=== PATIENT | female | born 1980 | race African-American/Black ===

== ENCOUNTER → 2019-12-25 | Outpatient (CLI) | payer OTHER | LOC: M.MRI 11:07 | DX: N63.13 Unspecified lump in the right breast, lower outer quadrant (principal) ==

== ENCOUNTER → 2020-01-02 | Day surgery (SDC) | payer OTHER ==
[~2020-01-02] MED LIST: ALDACTONE100 MG PO; BUPROPION XL300 MG PO; LIPITOR 20 MG T20 M1 PO; LOSARTAN POTASS50 MG PO; OZEMPIC0.25 MG/0. SUBQ; TOPAMAX100 MG PO; TRAMADOL 50 MG50 MG PO; VITAMIN D22000 UNIT PO
[2020-01-02 10:59] LABS: HEMATOCRIT 39.6 % (37.0-47.0); MCH 27.1 pg (26.0-34.0); MCHC 32.8 g/dL (28.0-37.0); MCV 82.6 fL (80.0-100.0); MPV 7.9 fl. (7.2-11.1); RBC 4.8 mil/uL (4.20-5.00); RDW-CV 16.8 % (10.5-14.5); WBC 11.1 thou/uL (4.0-11.0)
[2020-01-02 11:08] LABS: CALCIUM 8.5 mg/dL (8.5-10.1); POTASSIUM 3.9 mmol/L (3.5-5.1)
--- NOTE | 2020-01-02 15:54 | 2DMMODE ---
[place] [address] 2 D/M-MODE ECHOCARDIOGRAM Name: CAN ZELAYA Room: [facility]#: [id number] Admission: 01/02/20 Attend Phys: Brenda Dhaliwal, Discharge: Date of : 76 Date of Service: 01/02/20 1552 Report #: [id number] THIS REPORT FOR: cc: Rodolfo Pritchett MD, Tuongvan T. MD Liston, Michael J. MD [facility] ~ APPROVED REPORT Study performed: 01/02/2020 09:29:51 EXAM: Comprehensive 2D, Doppler, and color-flow Echocardiogram Patient Location: Out-Patient BSA: 2.64 HR: 72 bpm Other Information Study Quality: Good Indications Chemo 2D Dimensions IVSd: 12.23 (7-11mm) LVOT Diam: 20.41 (18-24mm) LVDd: 48.59 mm PWd: 11.60 (7-11mm) Ascending Ao: 32.99 (22-36mm) LVDs: 28.59 (25-40mm) Aortic Root: 32.15 mm Volumes Left Atrial Volume (Systole) LA ESV Index: 15.10 mL/m2 Aortic Valve AoV Peak Santos.: 1.52 m/s AO Peak Gr.: 9.19 mmHg LVOT Max P.20 mmHg AO Mean Gr.: 4.82 mmHg LVOT Mean P.31 mmHg LVOT Max V: 1.14 m/s AO V2 VTI: 29.07 cm LVOT Mean V: 0.68 m/s ESPERANZA (VTI): 2.65 cm2 LVOT V1 VTI: 23.57 cm Mitral Valve E/A Ratio: 1.21 [place] [address] 2 D/M-MODE ECHOCARDIOGRAM Name: CAN ZELAYA Room: [facility]#: [id number] Admission: 01/02/20 Attend Phys: Brenda Dhaliwal, Discharge: Date of : 76 Date of Service: 01/02/20 1552 Report #: [id number] MV Decel. Time: 203.05 ms MV E Max Santos.: 0.97 m/s MV PHT: 58.88 ms MVA (PHT): 3.74 cm2 TDI E/Lateral E': 7.46 E/Medial E': 6.93 Medial E' Santos.: 0.14 m/s Lateral E' Santos.: 0.13 m/s Pulmonary Valve PV Peak Santos.: 0.86 m/s PV Peak Gr.: 2.99 mmHg Left Ventricle The left ventricle is normal size. There is normal LV segmental wall motion. There is normal left ventricular wall thickness. Left ventricular systolic function is normal. LVEF is 60-65%. The left ventricular diastolic function is normal. Right Ventricle The right ventricle is normal size. The right ventricular systolic function is normal. Atria The left atrium size is normal. The right atrium size is normal. Aortic Valve The aortic valve is normal in structure. No aortic regurgitation is present. There is no aortic valvular stenosis. Mitral Valve The mitral valve is normal in structure. There is no mitral valve regurgitation noted. No evidence of mitral valve stenosis. Tricuspid Valve The tricuspid valve is normal in structure. There is no tricuspid valve regurgitation noted. Pulmonic Valve The pulmonary valve is normal in structure. There is no pulmonic valvular regurgitation. Great Vessels The aortic root is normal in size. IVC is normal in size and collapses >50% [place] [address] 2 D/M-MODE ECHOCARDIOGRAM Name: CAN ZELAYA Room: [facility]#: [id number] Admission: 01/02/20 Attend Phys: Brenda Dhaliwal, Discharge: Date of : 76 Date of Service: 01/02/20 1552 Report #: [id number] Pericardium There is no pericardial effusion. <Conclusion> The left ventricle is normal size. There is normal left ventricular wall thickness. Left ventricular systolic function is normal. The left ventricular diastolic function is normal. IVC is normal in size and collapses >50% with inspiration. LVEF is 60-65%. <ELECTRONICALLY SIGNED> By: Tate Bonilla MD, FACC 01/02/20 [phone] 51 Tate Bonilla MD, FACC /INF
--- NOTE | 2020-01-10 17:06 | OP ---
[address] [address] OPERATIVE REPORT Name: CAN ZELAYA Room: [facility]#: [id number] Admission: 01/02/20 Attend Phys: Brenda Dhaliwal DO Discharge: Date of : 76 Report #: [id number] THIS REPORT FOR: //name// cc: Rodolfo Pritchett MD, Tuongvan T. MD ~ THIS REPORT FOR: //name// CC: Brenda Pritchett MD DICTATED BY: Morenita Rico DO DATE OF SERVICE: 01/02/2020 PREOPERATIVE DIAGNOSIS: Right breast cancer in need of neoadjuvant therapy. POSTOPERATIVE DIAGNOSIS: Right breast cancer in need of neoadjuvant therapy. PROCEDURE PERFORMED: Left internal jugular ultrasound and fluoroscopy guided chemo port placement with surgeon interpretation of images. PRIMARY SURGEON: Brenda Dhaliwal DO DATA SCIENCES DIRECTOR: Morenita Rico DO, PGY2. ANESTHESIA: General and local. ESTIMATED BLOOD LOSS: 5 mL. FINDINGS: Left IJ was patent. Mild difficulty with passing wire and catheter at the junction of the brachiocephalic and SVC wire passed into the opposite IJ several times. COMPLICATIONS: None. INDICATIONS FOR PROCEDURE: The patient is a pleasant 39-year-old female who presented to our office with a diagnosis of right breast cancer was found to be ER/FL negative and HER-2 positive. She is in need of neoadjuvant therapy and it was recommended that she undergo placement of a chemo port. The procedure, risks, benefits, possible complications to include bleeding, infection, injury to surrounding structures, need for additional surgery, pneumothorax port complications, risk of anesthesia, and other risks of surgery were all discussed with the patient in great detail. She voiced complete understanding and wished to proceed with surgery. [place] [id number] OPERATIVE REPORT Name: CAN ZELAYA Room: [facility]#: [id number] Admission: 01/02/20 Attend Phys: Brenda Dhaliwal DO Discharge: Date of : 76 Report #: [id number] DESCRIPTION OF PROCEDURE: Informed consent was obtained. The patient was taken to the operating room and placed supine on the operating room table. SCDs were placed on bilateral lower extremities. Preoperative antibiotics given general LMA anesthesia was induced without difficulty. The left neck was exposed. Ultrasound was used to identify the left neck vascular anatomy. IJ appeared widely patent and easily compressible. The left neck was then prepped and draped in the standard sterile fashion. Timeout was performed to ensure correct patient and procedure. The ultrasound was draped with sterile drape and the left neck vascular anatomy was again visualized with ultrasound. Approximately 5 mL of 0.5% Marcaine were used to anesthetize the area where we plan to access the left IJ and then the left chest in the infraclavicular region was also anesthetized using 0.5% Marcaine. The 18-gauge finder needle was then used to access the left IJ using ultrasound guidance. We had dark venous nonpulsatile blood return into our syringe. Syringe was removed. A guidewire was then passed through our needle and into the left IJ. Ultrasound was used to confirm wire placement within the left IJ. Needle was removed. The C-arm was then brought in and imaging was obtained to ensure that the wire was in a satisfactory position in the superior vena cava. Wire appeared to actually be within the opposite internal jugular vein. It was backed up and advanced again under fluoroscopic guidance until it passed into the superior vena cava. Once this was done, the wire was secured. A #15 blade scalpel was then used to make a 4 cm infraclavicular incision on the left chest. Incision was carried down through subcutaneous tissue using electrocautery. A pocket was formed to place our port in using combination of blunt dissection and electrocautery. Once this pocket was formed, we then advanced the breakaway catheter and dilator over our wire. The dilator and guidewire were then removed. The port catheter was then advanced through the breakaway catheter. Again, C-arm was brought in to ensure good position of the port catheter within the superior vena cava. It appeared to be in the correct position. The breakaway catheter was then removed. The tunneling device was then used to tunnel a pathway for the catheter from the small melvin incision in the left neck to the superior aspect of the pocket we had previously formed for the port. The internal wire within the catheter was removed. Catheter was advanced onto the end of the tunneling device and it was tunneled from the left neck into the superior aspect of the pocket that we previously formed for our port. Once C-arm was brought back in to ensure that the catheter remained in good position, it appeared to still be within the superior vena cava. The port was then brought into the field and secured into the pocket using 0 Prolene sutures on the medial and lateral aspects. The catheter was then trimmed to an appropriate length and advanced on to the top of our port and secured in the standard fashion. Davsi needle was used to access the port. Dark venous blood return was noted. It was flushed with sterile saline. We then flushed the port with 5 mL of the premixed heparin solution. An additional 10 mL of 0.5% Marcaine were used to anesthetize the left chest area. A final image was taken with the C-arm to ensure that the port catheter remained in good position. The left chest incision was then approximated using 3-0 Vicryl suture in a simple interrupted in inverted fashion. [place] [address] OPERATIVE REPORT Name: CAN ZELAYA Room: [facility]#: [id number] Admission: 01/02/20 Attend Phys: Brenda Dhaliwal DO Discharge: Date of : 76 Report #: [id number] closed using 4-0 Monocryl suture in a running subcuticular fashion. A small melvin incision in the left neck was closed using 4-0 Monocryl suture in a simple interrupted and inverted fashion. Surgical site was cleansed and dried. Sterile dressings were applied using Mastisol, Steri-Strips, 4 x 4's, and Tegaderms. The patient tolerated the procedure very well. She was allowed to awaken in the operating room and was transferred to the PACU in stable condition with plans for a postprocedure chest x-ray and to discharge home later today. <ELECTRONICALLY SIGNED> By: Brenda Dhaliwal DO 01/10/20 1706 1234 [id number] Dhaliwal, DO /nt
== END | disposition home or self-care (01) ==
LOC: M.SUR → M.CRD 09:26 → M.SUR 09:26
PROVIDERS: Surgery
DX: Z45.2 Encounter for adjustment and management of vascular access device (principal); C50.911 Malignant neoplasm of unspecified site of right female breast; I10 Essential (primary) hypertension; E10.9 Type 1 diabetes mellitus without complications; Z98.890 Other specified postprocedural states; Z79.899 Other long term (current) drug therapy; Z91.041 Radiographic dye allergy status; Z98.84 Bariatric surgery status; Z83.3 Family history of diabetes mellitus

== ENCOUNTER → 2020-04-15 | Outpatient (CLI) | payer OTHER ==
[~2020-04-15] MED LIST changes: +COREG6.25 MG PO; +HERCEPTIN150 MG IV; +MAGNESIUM500 MG PO
--- NOTE | 2020-04-15 15:28 | 2DMMODE ---
[facility] [place] [place] [address] 2 D/M-MODE ECHOCARDIOGRAM Name: CAN ZELAYA Room: [facility]#: [id number] Admission: 04/15/20 Attend Phys: Joshua Archibald MD Discharge: Date of : 76 Date of Service: 04/15/20 1526 Report #: [id number] THIS REPORT FOR: cc: Rodolfo Pritchett MD, Tuongvan T. MD Holkins, John M. MD [facility] ~ APPROVED REPORT Study performed: 04/15/2020 10:11:24 EXAM: Comprehensive 2D, Doppler, and color-flow Echocardiogram BSA: 2.68 HR: 84 bpm BP: 152/82 mmHg Other Information Study Quality: Good Indications Chemo Left Ventricle The left ventricle is normal size. There is normal LV segmental wall motion. There is normal left ventricular wall thickness. Left ventricular systolic function is normal. The left ventricular ejection fraction is within the normal range. LVEF is 55-60%. Right Ventricle The right ventricle is normal size. The right ventricular systolic function is normal. Atria The left atrium size is normal. Aortic Valve The aortic valve is normal in structure. Mitral Valve The mitral valve is normal in structure. Tricuspid Valve The tricuspid valve is normal in structure. [address] [address] 2 D/M-MODE ECHOCARDIOGRAM Name: CAN ZELAYA Room: [facility]#: [id number] Admission: 04/15/20 Attend Phys: Joshua Archibald MD Discharge: Date of : 76 Date of Service: 04/15/20 1526 Report #: [id number] Pericardium There is no pericardial effusion. <Conclusion> The left ventricle is normal size. There is normal left ventricular wall thickness. Left ventricular systolic function is normal. The left ventricular ejection fraction is within the normal range. LVEF is 55-60%. The right ventricle is normal size. The left atrium size is normal. The aortic valve is normal in structure. The mitral valve is normal in structure. The tricuspid valve is normal in structure. There is no pericardial effusion. There is normal LV segmental wall motion. <ELECTRONICALLY SIGNED> By: Flaco Jacob MD, FACC 04/15/20 1526 1526 1526 Flaco Jacob MD, FACC /INF
== END ==
LOC: M.CRD 09:57
PROVIDERS: ATTEND Internal Medicine Hematology & Oncology
DX: C50.311 Malignant neoplasm of lower-inner quadrant of right female breast (principal); Z17.1 Estrogen receptor negative status [ER-]

== ENCOUNTER → 2020-05-16 | Outpatient (CLI) | payer OTHER ==
[~2020-05-16] MED LIST changes: +PERCOCET 5-3251 EACH PO
== END | disposition home or self-care (01) ==
LOC: M.ULTRA 08:00
PROVIDERS: ATTEND Surgery
DX: R92.8 Other abnormal and inconclusive findings on diagnostic imaging of breast (principal); C50.911 Malignant neoplasm of unspecified site of right female breast; N63.41 Unspecified lump in right breast, subareolar; I10 Essential (primary) hypertension; E11.9 Type 2 diabetes mellitus without complications; Z79.899 Other long term (current) drug therapy; Z88.8 Allergy status to other drugs, medicaments and biological substances; Z20.828 Contact with and (suspected) exposure to other viral communicable diseases

== ENCOUNTER → 2020-05-21 | Day surgery (SDC) | payer OTHER ==
[2020-05-21 06:42] LABS: CALCIUM 8.6 mg/dL (8.5-10.1); CREATININE 1.2 mg/dL (0.6-1.3); POTASSIUM 3.4 mmol/L (3.5-5.1)
--- NOTE | 2020-05-21 14:25 | EKG ---
[place] [address] ELECTROCARDIOGRAM REPORT Name: CAN ZELAYA Room: [facility]#: [id number] Admission: 05/21/20 Attend Phys: Brenda Dhaliwal, Discharge: Date of : 76 Date of Service: 05/21/2023 Report #: [id number] THIS REPORT FOR: //name// [facility] Test Date: 2020-05-21 Test Time: 07:23:40 Pat Name: CAN ZELAYA Department: Room: Gender: Agricultural Sales Representative: JANIA : 1980 Requested By: Brenda Dhaliwal Order Number: [id number] Reading MD: Ozzy Pope Measurements Intervals [place] Rate: 77 P: 41 HI: 175 QRS: -12 QRSD: 107 T: 44 QT: 381 QTc: 432 Interpretive Statements Sinus rhythm Low voltage, precordial leads Consider anterior infarct No previous ECG available for comparison Electronically Signed On 05-21-2020 14:24:59 CDT by Ozzy Pope [email or web address] <ELECTRONICALLY SIGNED> By: Ozzy Pope MD, [facility] 05/21/20 1424 2 2 Ozzy Pope MD, [facility] /EPI
--- NOTE | 2020-05-22 08:06 | OP ---
[address] [address] OPERATIVE REPORT Name: CAN ZELAYA Room: [facility]#: [id number] Admission: 05/21/20 Attend Phys: Brenda Dhaliwal DO Discharge: Date of : 76 Report #: [id number] THIS REPORT FOR: //name// cc: Rodolfo Pritchett MD, Tuongvan T. MD ~ THIS REPORT FOR: //name// CC: Brenda Pritchett MD DICTATED BY: Chong Zelaya DO DATE OF SERVICE: 05/21/2020 PREOPERATIVE DIAGNOSIS: Right breast, HER-2 positive breast cancer. POSTOPERATIVE DIAGNOSIS: Right breast, HER-2 positive breast cancer. FINDINGS: Right breast clip and RFID tag in place. Nuclear uptake in the nipple was 12,000, uptake at the right deep sentinel lymph node biopsy was 501. SURGEON: Brenda Dhaliwal DO CO-SURGEON: Chong Zelaya DO, PGY5 SALES TRADER: TALIB Gastelum OPERATION PERFORMED: Right breast RFID tag-guided lumpectomy and right deep sentinel lymph node biopsy. ANESTHESIA: General, local and right breast block. ESTIMATED BLOOD LOSS: 10. SPECIMEN: Right lumpectomy and right sentinel deep lymph node dissection. COMPLICATIONS: None. INDICATIONS: The patient is a 39-year-old female with history of HER-2 positive right breast cancer. She underwent neoadjuvant therapy with chemo and monoclonal antibodies and had an excellent response in the size of her tumor. She underwent preoperative RFID tag placement as well as preoperative radio nucleotide injection for sentinel lymph node biopsy. She was informed of the risks and benefits of lumpectomy and sentinel lymph node biopsy with risks including but not limited to bleeding, infection, nerve injury, need for [facility] [address] [place] [address] OPERATIVE REPORT Name: NATHALIE,CAN R Room: [facility]#: [id number] Admission: 05/21/20 Attend Phys: Brenda Dhaliwal DO Discharge: Date of : 76 Report #: [id number] reexcision. She understood these risks and decided to proceed with surgery. DESCRIPTION OF PROCEDURE: After informed consent was obtained, the patient was brought to the operating room and placed in supine position. SCDs were on and running. Preoperative antibiotics were given. General anesthesia was induced with an ET tube. The patient was prepped and draped in usual sterile fashion. Prior to arriving to the OR, the patient also underwent right breast block by Anesthesia. Surgical pause was held to confirm proper patient and procedure. The Lymphazurin was injected at 4 quadrants to the nipple prior to start of the procedure and prior to prepping and draping. The RFID probe was used to locate the tag. The planned incision site was anesthetized with 0.5% Marcaine. This was in the medial inferior aspect of the right breast. Curvilinear incision was made with a 15-blade. Dissection was carried through the subcutaneous tissue using cautery. The RFID probe was used to guide dissection circumferentially around the probe which was medial to our mass. The mass was approximately 1.5 cm. Some of this information was used to create a wide lumpectomy specimen around both the tag and the clip in the entirety of the specimen. Once circumferentially dissected through the breast parenchyma, the specimen was transected and maintained in its original orientation. Marking stitches were used to maintain its orientation with a short stitch superior, long stitch medial. The clip was visualized within the specimen and the RFID tag was confirmed within the specimen. This was placed within the transpec container and sent to Radiology. Radiology confirmed the presence of both the tag and the clip within the specimen. This wound was thoroughly irrigated. Cautery was used for hemostasis, it was closed in layered fashion using 3-0 Vicryl, 4-0 Monocryl. The wound was cleansed and dressed with Dermabond. Attention was then turned towards the right axilla. The Neoprobe was used to identify a tracer uptake. The uptake at the nipple was approximately 12,000. A curvilinear incision was made in the right axilla after local anesthesia was placed. Dissection was carried through subcutaneous fat using cautery. A Monica was then used to bluntly dissect into the axillary fat. A blue-appearing lymphatic channel was isolated. This was dissected towards the axilla until we found it emptying into a lymph node. The lymph node was grasped with an Allis. Further blunt dissection with a Monica was carried circumferentially around the lymph node. The cautery was used to transect the deep attachments to this lymph node during traction. A portion of the lymph node did fracture. The fracture element was grasped with an Allis and the entirety of the sentinel lymph node was excised using cautery. The Neoprobe was placed on our specimen. The maximum uptake was 501. The Neoprobe was then inserted into the incision and the residual uptake was only 17 at its maximal location. Therefore, this was deepened to adequate sentinel lymph node dissection. Wound was thoroughly irrigated. Cautery was used for hemostasis. FloSeal hemostatic agent was inserted into this wound and was actually inserted into the lumpectomy wound as well. This wound was closed in layered fashion using 3-0 Vicryl, 4-0 Monocryl. Wound was cleansed and dressed with Dermabond. The patient was emerged from [address] [place] [address] OPERATIVE REPORT Name: CAN ZELAYA Estefani Room: [facility]#: [id number] Admission: 05/21/20 Attend Phys: Brenda Dhaliwal DO Discharge: Date of : 76 Report #: [id number] anesthesia, extubated and transferred to PACU in stable condition. All counts were correct. <ELECTRONICALLY SIGNED> By: Brenda Dhaliwal DO 05/22/20 0806 1133 1213Ckeila Dhaliwal DO /nt
--- NOTE | 2020-05-27 18:06 | PATH ---
[address] [address] PATHOLOGY RPT PROCEDURE Name: CHANTE ZELAYA Room: [facility]#: [id number] Admission: 05/21/20 Date of : 76 Discharge: Report #: [id number] Path Case #: [id number] [facility] Accession Number: [id number] . 01 Material submitted: . PART A: breast - LUMPECTOMY RIGHT BREAST. Modifiers: right PART B: lymph node - SENTINEL LYMPH NODE #1 . 01 Clinical history: . Right breast HER-2 positive . 02 Diagnosis: A. Lumpectomy right breast: - Breast tissue with features attributable to prior therapy and prior biopsy site including plastic/copper marker and second metallic biopsy clip, with no residual malignancy or atypia. See comment. . B. [place] lymph node #1: - Benign lymph node with dermatopathic features including melanin pigment deposition in histiocytes and foreign body-type multinucleated giant cells. See comment. LBQ 05/27/2020 1738 Local . 02 Comment: Sections of the prior biopsy site (A4-A8) show pools of mucin containing scattered histiocytes and void of epithelial cells, also in association with dense fibrosis and mild chronic inflammation, and is attributed to therapy changes. Properly controlled keratin AE1/AE3 immunohistochemical study performed on B1 shows no evidence of metastatic tumor. . Review of this patient's prior right breast mass biopsy performed around 12/01/2019 shows invasive ductal adenocarcinoma, intermediate grade, without any evidence of a mucinous component and which was ER 0%, LA 0.10%, Her2 3+/over expressed and Ki-67 37.4% ([facility], [id number]). Per review of Dr. Dhaliwal's operative report dated 05/22/2020, the patient subsequently underwent neoadjuvant therapy with chemo and monoclonal antibodies with an excellent clinical response. Specimens A and B reviewed with Dr. Althea Alfred who agrees with the diagnoses. (TAWNY/db/pit; 05/27/2020) . 02 Electronically signed: . Tushar Harrell MD, Pathologist NPI- [id number] . 01 Gross description: . A. The specimen is received in formalin, labeled "Chante Zelaya, right breast lumpectomy, short superior, long medial". Received is a [address] [place] [address] PATHOLOGY RPT PROCEDURE Name: CHANTE ZELAYA Room: [facility]#: [id number] Admission: 05/21/20 Date of : 76 Discharge: Report #: [id number] Path Case #: [id number] lumpectomy specimen measuring 8.7 cm from medial to lateral, 6.0 cm from superior to inferior, and 2.1 cm from anterior to posterior. The specimen is inked as follows: Superior-blue, inferior-green, lateral-red, medial-yellow, anterior-black, posterior-orange. The specimen is sectioned from medial to lateral aspects into 28 slices. There is a plastic/copper biopsy marker identified within slice 15, however, a previous biopsy site is not grossly identified. Within slice 22 at the posterior margin, a second metallic biopsy clip is identified. In slices 18 through 23, there is a focus of fibrous tissue present measuring 1.8 x 1.4 x 0.5 cm, which grossly abuts the posterior margin. The remainder of the specimen displays bright yellow lobulated cut surfaces. The specimen is submitted representatively as follows: . A1 most medial margin A2 most lateral margin A3 outside sales account representative section of slice 15 where plastic/copper biopsy marker was located A4-A9 outside sales account representative sections from slices 18 through 23, to include focus of fibrous tissue, with the previous biopsy marker site located in cassette A8. . B. The specimen is received in formalin, labeled "Chante Zelaya, sentinel lymph node #1, 501". Received is a segment of shaggy yellow-polanco lobulated tissue measuring 4.8 x 2.3 x 1.0 cm in greatest dimensions. Dissection and palpation of the specimen reveals a single lymph node measuring 1.2 cm in maximum dimensions. The lymph node is bisected and entirely submitted in cassette B1. Immunohistochemical stains are ordered. ([facility]AA; 05/22/2020) QAC/QAC 05/22/2020 1644 Local . 02 Pathologist provided ICD-10: Z03.89 . 02 CPT . 070926, 460175, V37984 Specimen Comment: A courtesy copy of this report has been sent to [phone], [phone] Specimen Comment: [phone] Specimen Comment: Report sent to / DR SHABAZZ Performed at: [address] [place] [address] [address], [place] [id number] MD Kashif Anders MD Phone: [phone] Performed at: 02 [facility] [address], [place], [place] [id number] MD Tushar Harrell MD Phone: [phone]
== END | disposition home or self-care (01) ==
LOC: M.SUR 06:02 → M.NUC 08:00 → M.ULTRA 08:00 → M.SUR 08:00 → EDSTATUS 08:00
PROVIDERS: ATTEND Surgery
DX: N64.89 Other specified disorders of breast (principal); R59.0 Localized enlarged lymph nodes; Z98.890 Other specified postprocedural states; Z79.899 Other long term (current) drug therapy; Z91.041 Radiographic dye allergy status